=== PATIENT | female | born 1955 | race Caucasian/White ===

== ENCOUNTER 2021-03-22 14:06 | Outpatient (CLI) | payer MEDICARE, MEDICAID, SELFPAY ==
--- NOTE | 2021-03-22 14:14 | USCV_ITS ---
Candelaria Stein Age: 65 Gender: F : 1955 Exam Date: 03/22/2021 14:43 Ordering Phys: Matthew Baltazar XX Technologist: ADALGISA Exam Location: [facility] – [place] Indication: s/p CABG 2015 BP: 138 / 88 HR: 80 Rhythm: Sinus Technical Quality: Adequate MEASUREMENTS (Male / Female) Normal Values 2D ECHO LV Diastolic Diameter PLAX 2.9 cm 4.2 - 5.9 / 3.9 - 5.3 cm LV Systolic Diameter PLAX 2.0 cm IVS Diastolic Thickness 1.6 cm 0.6 - 1.0 / 0.6 - 0.9 cm IVS Systolic Thickness 2.0 cm LVPW Diastolic Thickness 1.0 cm 0.6 - 1.0 / 0.6 - 0.9 cm LVPW Systolic Thickness 1.2 cm LVOT Diameter 2.0 cm LV Ejection Fraction 2D Teich 61.5 % LV Ejection Fraction MOD 2C 62.0 % LV Ejection Fraction 2C AL 62.4 % LA Diameter 3.8 cm LA Width 3.0 cm LA Height 4.9 cm RA Width 2.5 cm RA Height 4.0 cm Aorta at Sinotubular Diameter 2.9 cm M-MODE Aortic Annulus Diameter 3.0 cm LA Ao Ratio MM 1.3 MV E Point Septal Separation 0.4 cm DOPPLER AV Peak Velocity 125.0 cm/s LVOT Peak Velocity 120.0 cm/s AV Area Cont Eq vti 3.3 cm squared AV Area Cont Eq pk 2.9 cm squared MV Peak Velocity 115.0 cm/s MV Area PHT 2.5 cm squared Mitral E to A Ratio 0.7 MV E' Velocity 44.0 cm/s Mitral E to MV E' Ratio 10.1 Mitral E to LV E' Lateral Ratio 8.3 Mitral E to LV E' Septal Ratio 12.9 TR Peak Velocity 212.0 cm/s TR Peak Gradient 18.0 mmHg TV Peak E Velocity 71.0 cm/s Right Atrial Pressure 5.0 mmHg Pulmonary Artery Systolic Pressu 23.0 mmHg PV Peak Velocity 83.0 cm/s RV Acceleration Time 0.1 s RV Ejection Time 0.3 s RV AcT/ET 0.4 FINDINGS Left Ventricle Normal left ventricular cavity size. Normal left ventricular systolic function. No regional wall motion abnormalities. Left ventricular ejection fraction is estimated at 60 %. Grade I/IV diastolic dysfunction (abnormal relaxation filling pattern), normal to mildly elevated filling pressures. Right Ventricle The right ventricle is normal in size and function. Right Atrium The right atrium is normal in size. Left Atrium The left atrium is normal in size. Mitral Valve Structurally normal mitral valve without significant stenosis or prolapse. There is no mitral regurgitation. Aortic Valve Moderate aortic valve calcification. No aortic valve stenosis. No aortic valve regurgitation. Tricuspid Valve Structurally normal tricuspid valve without significant stenosis or regurgitation. Pulmonary artery systolic pressure is normal. Pulmonic Valve Structurally normal pulmonic valve without significant stenosis. There is no pulmonic regurgitation. Pericardium Normal pericardium without effusion. Aorta Normal ascending aorta dimension. CONCLUSIONS 1-Normal left ventricular cavity size. Normal left ventricular systolic function. No regional wall motion abnormalities. Left ventricular ejection fraction is estimated at 60 %. Grade I/IV diastolic dysfunction (abnormal relaxation filling pattern), normal to mildly elevated filling pressures. 2-There is no pericardial effusion. 3-No significant valve abnormalities. 4-Pulmonary artery systolic pressure is within normal limits. 5-Right atrial pressure is around 5 mm of mercury. 6-There are no prior echocardiogram studies to compare. Heidi Tee MD (Electronically Signed) Final Date: 22 March 2021 19:31 S
== END 2021-03-22 14:07 | disposition home or self-care (01) ==
LOC: RAD 14:08
PROVIDERS: PCP Nurse Practitioner Family; Visit Provider Family Medicine
DX: I25.5 Ischemic cardiomyopathy (principal); Z95.1 Presence of aortocoronary bypass graft
CPT/HCPCS: 93306

== ENCOUNTER → 2021-09-28 13:14 | Outpatient (BNVA) | payer MEDICARE, MEDICAID, SELFPAY | PROVIDERS: PCP Nurse Practitioner Family; Referring Provider Nurse Practitioner Family; Visit Provider Internal Medicine | DX: E11.65 Type 2 diabetes mellitus with hyperglycemia (principal); E78.2 Mixed hyperlipidemia; K76.0 Fatty (change of) liver, not elsewhere classified; Z79.4 Long term (current) use of insulin | CPT/HCPCS: 99204 ==

== ENCOUNTER → 2022-03-14 10:44 | Outpatient (BNVA) | payer MEDICARE, MEDICAID, SELFPAY | PROVIDERS: PCP Nurse Practitioner Family; Visit Provider Internal Medicine | DX: E11.65 Type 2 diabetes mellitus with hyperglycemia (principal); E11.9 Type 2 diabetes mellitus without complications; K76.0 Fatty (change of) liver, not elsewhere classified; Z79.4 Long term (current) use of insulin | CPT/HCPCS: 80053; 80061; 82044; 83036; 99214 ==

== ENCOUNTER 2022-08-21 12:56 | Outpatient (CLI) | payer MEDICARE, MEDICAID, SELFPAY ==
[2022-08-21 13:35] LABS: Alanine Aminotransferase 26 U/L (0-33); Albumin Level 4.2 g/dL (3.5-5.2); Alkaline Phosphatase 49 U/L (35-105); Aspartate Amino Transferase 24 U/L (0-32); Blood Urea Nitrogen 10 mg/dL (8-23); Carbon Dioxide 22 mmol/L (22-29); Chloride 98 mmol/L (98-107); Chol HDL Ratio 5.17 mg/dL (0.0-4.40); Cholesterol 155 mg/dL (0-200); Globulin 2.8 g/dL (1.3-4.6); Glomerular Filtration Rate 100.6 mL/min (90-130); Glucose 333 mg/dL (65-115); HDL Cholesterol 30 mg/dL (60-100); LDL Cholesterol Calculated 79 mg/dL (50-129); LDL HDL Ratio 2.63 RATIO (0.00-3.22); Osmolality Calculated 286 mOsm/kg (285-295); Sodium 132 mmol/L (136-145); Total Bilirubin 0.8 mg/dL (0.15-1.2); Triglycerides 230 mg/dL (0-150)
[2022-08-21 13:36] LABS: Anion Gap 16.4 (5-19); Creatinine Urine, Random 92 mg/dL (28-217); Microalbum Creatinine Ratio Ur 11 mg/dL (0-20); Microalbumin Random Urine 1 ug/dL (0-20); Potassium 4.4 mmol/L (3.5-5.1)
[2022-08-21 13:40] LABS: Estmated Average Glucose 169; Hemoglobin A1C 7.5 % (4.0-6.0)
== END 2022-08-21 12:57 | disposition home or self-care (01) ==
LOC: LAB 13:00
PROVIDERS: PCP Family Medicine; Visit Provider Internal Medicine
DX: E11.65 Type 2 diabetes mellitus with hyperglycemia (principal); E78.2 Mixed hyperlipidemia; K76.0 Fatty (change of) liver, not elsewhere classified; Z79.4 Long term (current) use of insulin
CPT/HCPCS: 36415; 80053; 80061; 82044; 83036; 99214

== ENCOUNTER 2022-10-31 13:34 | Outpatient (CLI) | payer MEDICARE, MEDICAID, SELFPAY ==
--- NOTE | 2022-10-31 13:45 | MM_ITS ---
WS: [id number] BILATERAL 3D TOMOSYNTHESIS DIGITAL SCREENING MAMMOGRAPHY WITH CAD CLINICAL INFORMATION: SCREENING HISTORY: Screening mammogram. No current complaints. COMPARISON: 2020 TECHNIQUE: Bilateral CC and MLO views. FINDINGS: The breasts are composed of heterogeneous fibroglandular density tissue, which can limit the detectio n of small underlying mass lesions. No suspicious mass, asymmetry, calcifications, or architectural d istortion. No evidence of malignancy. Punctate and lucent centered calcifications. Vascular calcifica tion. IMPRESSION: MM/[place] [id number] BI-RADS: 2-Benign FOLLOW UP: 1 Year Follow-up Recommend return to annual screening mammography.
== END 2022-10-31 13:35 | disposition home or self-care (01) ==
LOC: RAD 13:35 → MOBLMAM 13:44
PROVIDERS: PCP Family Medicine; Visit Provider Family Medicine
DX: Z12.31 Encounter for screening mammogram for malignant neoplasm of breast (principal)
CPT/HCPCS: 77063; 77067

== ENCOUNTER 2022-11-23 08:55 | Outpatient (CLI) | payer MEDICARE, MEDICAID, SELFPAY ==
[2022-11-23 09:25] LABS: Estmated Average Glucose 183
[2022-11-23 09:32] LABS: Alanine Aminotransferase 25 U/L (0-33); Albumin Level 4.4 g/dL (3.5-5.2); Alkaline Phosphatase 51 U/L (35-105); Anion Gap 17.7 (5-19); Aspartate Amino Transferase 21 U/L (0-32); Blood Urea Nitrogen 8 mg/dL (8-23); Calcium 9.4 mg/dL (8.5-10.5); Carbon Dioxide 23 mmol/L (22-29); Chloride 99 mmol/L (98-107); Chol HDL Ratio 5.09 mg/dL (0.0-4.40); Cholesterol 163 mg/dL (0-200); Globulin 2.5 g/dL (1.3-4.6); Glucose 331 mg/dL (65-115); HDL Cholesterol 32 mg/dL (60-100); LDL Cholesterol Calculated 71 mg/dL (50-129); LDL HDL Ratio 2.22 RATIO (0.00-3.22); Osmolality Calculated 291 mOsm/kg (285-295); Potassium 4.7 mmol/L (3.5-5.1); Sodium 135 mmol/L (136-145); Total Bilirubin 0.5 mg/dL (0.15-1.2); Total Protein 6.9 g/dL (6.6-8.7); Triglycerides 299 mg/dL (0-150)
[2022-11-23 09:33] LABS: Creatinine Urine, Random 95 mg/dL (28-217); Microalbum Creatinine Ratio Ur 11 mg/dL (0-20); Microalbumin Random Urine 1 ug/dL (0-20)
== END 2022-11-23 08:56 | disposition home or self-care (01) ==
PROVIDERS: PCP Family Medicine; Visit Provider Internal Medicine
DX: E11.65 Type 2 diabetes mellitus with hyperglycemia (principal); E78.2 Mixed hyperlipidemia; K76.0 Fatty (change of) liver, not elsewhere classified; Z79.4 Long term (current) use of insulin
CPT/HCPCS: 80053; 80061; 82044; 83036; 99214

== ENCOUNTER → 2023-03-14 09:39 | Outpatient (BNVA) | payer MEDICARE, MEDICAID, SELFPAY | PROVIDERS: PCP Family Medicine; Visit Provider Internal Medicine | DX: K76.0 Fatty (change of) liver, not elsewhere classified; E11.65 Type 2 diabetes mellitus with hyperglycemia; E78.2 Mixed hyperlipidemia; Z79.4 Long term (current) use of insulin; Z79.85 Long-term (current) use of injectable non-insulin antidiabetic drugs | CPT/HCPCS: 36415; 80053; 82044; 83036; 99214 ==

== ENCOUNTER → 2023-05-03 12:59 | Outpatient (BNVA) | payer MEDICARE, MEDICAID, SELFPAY | PROVIDERS: PCP Family Medicine; Referring Provider Nurse Practitioner Family; Visit Provider Surgery | DX: R13.10 Dysphagia, unspecified (principal); Z80.0 Family history of malignant neoplasm of digestive organs; K21.9 Gastro-esophageal reflux disease without esophagitis | CPT/HCPCS: 99204 ==

== ENCOUNTER 2023-05-09 09:41 | Day surgery (SDC) | payer MEDICARE, MEDICAID, SELFPAY ==
[2023-05-09 10:26] VITALS: BP 142/90; PULSE 90; RESP 18; TEMP 36.9; O2SAT 93
[2023-05-09 10:34] LABS: Glucose Point of Care 335 mg/dL (70-110)
[2023-05-09] MEDS: sodium chloride 0.9% 1,000 ML 30 ML IV (10:39)
--- NOTE | 2023-05-09 10:53 | P.ANESASSM_ITS ---
Pre-Anesthetic Assessment Height/Weight: Height 1.6 m Weight 70.76 kg Temp Pulse Resp BP Pulse Ox O2 Del Method 98.5 F 90 18 142/90 93 Room Air 05/09/23 10:05/09/23 10:05/09/23 10:05/09/23 10:05/09/23 10:05/09/23 10: Operation Date: 05/09/23 13:00 Proposed Procedures p EGD Dilation W/ Balloon(Not Applicable) - Maninder Patterson DO s Colonoscopy(Not Applicable) - Maninder Patterson DO Was Beta Arleth taken within 24 hours: Yes Was Clonidine taken within 24 hours: N/A Last intake: Intake Last Liquid Date 05/09/23 Last Liquid Time 08:00 Last Solid Date 05/07/23 Last Solid Time 22:00 Last Intake: 08:00 Social No alcohol and No tobacco Exam alert, oriented x 3, clear to auscultation bilaterally and regular rate & rhythm Airway Submandibular: within normal limits Cervical ROM: within normal limits Mallampati: Class II Dentition: full History/ROS No significant history except as noted Pulmonary None reported CV/HEM Coronary Artery Disease and Hypertension 3 vessel CABG 2014 None reported Hepatic None reported GI Gastroesophageal Reflux Disease Metabolic Diabetes Mellitus [facility] Scoliosis Neuropsych Anxiety Anesthetic Plan ASA status: 3 Anesthesia: MAC Risk of > 500 ml blood loss (7ml/kg in children): Yes, adequate IV access and fluids planned Medications/Allergies Home Medications Medication Instructions Recorded Confirmed Last Taken Type aspirin 325 mg tablet 325 mg PO DAILY 09/06/21 05/07/23 05/05/23 History carvedilol 6.25 mg tablet (Coreg) 6.25 mg PO BID 09/06/21 05/07/23 05/08/23 History conjugated estrogens 0.625 mg/gram 0.625 mg vaginal DAILY 09/06/21 05/07/23 05/08/23 History vaginal cream (Premarin) docusate sodium 100 mg capsule 100 mg PO DAILY 09/06/21 05/07/23 05/08/23 History (Colace) icosapent ethyl 1 gram capsule 2 g PO BID 09/06/21 05/07/23 05/08/23 History (Vascepa) lisinopril 5 mg tablet 5 mg PO DAILY 09/06/21 05/07/23 05/08/23 History paroxetine HCl 40 mg tablet (Paxil) 40 mg PO DAILY 09/06/21 05/07/23 05/08/23 History potassium chloride 10 mEq 10 meq PO DAILY 09/06/21 05/07/23 05/08/23 History tablet,extended release (Klor-Con) pravastatin 40 mg tablet 40 mg PO DAILY 09/06/21 05/07/23 05/08/23 History alendronate 70 mg tablet (Fosamax) 70 mg PO .Q 7 days. 09/28/21 05/07/23 05/08/23 History blood-glucose meter,continuous #1 ea 09/28/21 05/09/23 Unknown Rx (Dexcom G6 Pickle Maker) blood-glucose sensor (Dexcom G6 #9 ea 09/28/21 05/09/23 Unknown Rx Sensor device) blood-glucose transmitter (Dexcom #3 ea 09/28/21 05/09/23 Unknown Rx G6 Transmitter device) ergocalciferol (vitamin D2) 1,250 1,250 mcg PO .Q 7 days 09/28/21 05/07/23 05/08/23 History mcg (50,000 unit) capsule insulin regular hum U-500 conc 500 500 unit SUBCUT QAM 09/28/21 05/07/23 05/08/23 History unit/mL(3 mL) subcut pen semaglutide 2 mg/dose (8 mg/3 mL) 2 mg (0.75 mL) SUBCUT Q7D 90 days 04/23/23 05/07/23 04/25/23 Rx subcutaneous pen injector (Ozempic) #9 mL pantoprazole 40 mg tablet,delayed 40 mg PO BID 6 weeks #84 tabs 05/03/23 05/07/23 05/08/23 Rx release (Protonix) fenofibrate micronized 67 mg 67 mg PO DAILY 05/07/23 05/07/23 05/08/23 History capsule semaglutide 2 mg/dose (8 mg/3 mL) 2 mg SUBCUT DIRECTED 05/07/23 05/07/23 04/25/23 History subcutaneous pen injector (Ozempic) Allergies Allergy/AdvReac Type Severity Reaction Status Date / Time erythromycin base Allergy Intermediate ALGY-Hives Verified 05/03/23 13:13 Tetracyclines Allergy Unknown Verified 05/03/23 13:13 Current Medications Generic Name Dose Route Start Last Admin Trade Name Melonie PRN Reason Stop Dose Admin Sodium Chloride 1,000 mls @ 30 mls/hr 05/09/23 10:15 05/09/23 10:39 Sodium Chloride 0.9% IV 05/10/23 10:14 30 mls/hr .Q24H HOMER Administration PFSH Anesthesia Medical History (Updated 05/03/23 @ 14:30 by Maninder Patterson DO) Family history of colon cancer Scoliosis Coronary bypass graft mechanical complication Prophylactic ovary removal Abnormal colonoscopy Normal endoscopy Hypertension Hypertriglyceridemia Osteoporosis CAD S/P percutaneous coronary angioplasty Esophageal stricture Diabetes mellitus with hyperglycemia Mitral valve disorder Fatty liver Vitamin D deficiency Surgical History (Updated 05/03/23 @ 14:30 by Maninder Patterson DO) History of esophagogastroduodenoscopy (EGD) [facility] [place] History of appendectomy Previous section History of colonoscopy with polypectomy Hx of hysterectomy Family History Father Glaucoma Cancer Mother Cancer Hypertension Heart attack Social History Smoking and tobacco/nicotine status: never used tobacco/nicotine Second hand smoke exposure: No Alcohol intake: never Substance/Drug Use: never Adopted: No Caregiver/support person: No Lives independently: Yes Household members: spouse Housing: Manufactured/Mobile home Marital status: Number of children: 4 Highest education level completed: High School Graduate service: No Current occupational status: retired Data Anesthesia Cardiac Studies: Echocardiogram 03/22/21
[2023-05-09] MEDS: insulin regular-human 10 UNIT in SYRINGE 1 EACH IVP (10:56)
[2023-05-09 11:22] LABS: Glucose Point of Care 296 mg/dL (70-110)
--- NOTE | 2023-05-09 13:42 | W.PM.OPSUD ---
Surgery/Procedure H&P Update DATE OF PROCEDURE: May 09, 2023 DATE H&P PERFORMED: 05/03/23 H&P UPDATE INFORMATION: I have reviewed H&P completed within last 30 days, I have examined patient prior to procedure and No changes to prior documentation PLANNED PROCEDURE: Operation Date: 05/09/23 13:00 Proposed Procedures p EGD Dilation W/ Balloon(Not Applicable) - DO indy Hurd Colonoscopy(Not Applicable) - Maninder Patterson DO
--- NOTE | 2023-05-09 14:05 | ANE.PACU2 ---
Inpatient post-anesthesia follow up: Airway intact: Yes Vital signs: Temperature 97.5 F Pulse Rate 84 Respiratory Rate 18 Blood Pressure 172/97 Pulse Oximetry 94 Oxygen Delivery Me thod Room Air Oxygen Flow Rate Fraction of Inspir ed Oxygen Hydration adequate: Yes Nausea and vomiting: No Pain level: 1 Mental status: Baseline
[2023-05-09 14:15] VITALS: BP 154/89; PULSE 90; RESP 18; TEMP 36.4; O2SAT 93
[2023-05-09 14:20] VITALS: BP 158/102; PULSE 87; RESP 18; O2SAT 93
[2023-05-09 14:30] VITALS: BP 172/97; PULSE 84; RESP 18; O2SAT 94
== END 2023-05-09 14:58 | disposition home or self-care (01) ==
PROVIDERS: PCP Family Medicine; Visit Provider Surgery
PROC: 0DJD8ZZ Inspection of Lower Intestinal Tract, Via Natural or Artificial Opening Endoscopic (ICD-10-PCS; CPT 45378; 2023-05-09 13:00)
DX: Z12.11 Encounter for screening for malignant neoplasm of colon (principal); Z80.0 Family history of malignant neoplasm of digestive organs; Z86.010 Personal history of colon polyps; R13.10 Dysphagia, unspecified; Z79.82 Long term (current) use of aspirin; I10 Essential (primary) hypertension; I25.10 Atherosclerotic heart disease of native coronary artery without angina pectoris; E11.65 Type 2 diabetes mellitus with hyperglycemia; K29.50 Unspecified chronic gastritis without bleeding; K57.30 Diverticulosis of large intestine without perforation or abscess without bleeding; K22.2 Esophageal obstruction; Z95.1 Presence of aortocoronary bypass graft; K21.9 Gastro-esophageal reflux disease without esophagitis; M81.0 Age-related osteoporosis without current pathological fracture
CPT/HCPCS: 36416; 43239; 43249; 82962; 88305; 88342; 96374; G0121; J1815; J2704; J7030

== ENCOUNTER → 2023-06-05 09:50 | Outpatient (BNVA) | payer MEDICARE, MEDICAID, SELFPAY | PROVIDERS: PCP Family Medicine; Visit Provider Internal Medicine | DX: E11.65 Type 2 diabetes mellitus with hyperglycemia (principal); E78.2 Mixed hyperlipidemia | CPT/HCPCS: 80053; 80061; 82043; 83036 ==

== ENCOUNTER → 2023-06-11 11:16 | Outpatient (BNVA) | payer MEDICARE, MEDICAID, SELFPAY | PROVIDERS: PCP Family Medicine; Visit Provider Internal Medicine | DX: E11.65 Type 2 diabetes mellitus with hyperglycemia; E78.2 Mixed hyperlipidemia; K76.0 Fatty (change of) liver, not elsewhere classified; Z79.4 Long term (current) use of insulin; Z79.85 Long-term (current) use of injectable non-insulin antidiabetic drugs | CPT/HCPCS: 99214 ==

== ENCOUNTER 2023-07-04 06:42 | Day surgery (SDC) | payer MEDICARE, MEDICAID, SELFPAY ==
[2023-07-04 06:58] VITALS: BP 156/89; PULSE 70; RESP 18; TEMP 36.5; O2SAT 94; BMI 26.5
[2023-07-04] MEDS: sodium chloride 0.9% 1,000 ML 30 ML IV (07:03)
[2023-07-04 07:13] LABS: Glucose Point of Care 239 mg/dL (70-110)
--- NOTE | 2023-07-04 08:08 | ANES.PREANE2 ---
Pre-Anesthetic Assessment Height/Weight: Height 1.6 m Weight 68.039 kg Temp Pulse Resp BP Pulse Ox O2 Del Method 97.7 F 70 18 156/89 94 Room Air 07/04/23 06:58 07/04/23 06:58 07/04/23 06:58 07/04/23 06:58 07/04/23 06:58 07/04/23 06:58 Preop Diagnosis: strictures Operation Date: 07/04/23 08:15 [place] [id number] EGD w/ Balloon Dial K21.9,R13.10(Not Applicable) - Maninder Patterson DO Familial anesthetic complications: none Was Beta Arleth taken within 24 hours: Yes Was Clonidine taken within 24 hours: N/A Last intake: Intake Last Liquid Date 07/03/23 Last Liquid Time 23:30 Last Solid Date 07/03/23 Last Solid Time 22:30 Last Intake: 23:30 Social No alcohol and No tobacco Exam alert, oriented x 3, clear to auscultation bilaterally and regular rate & rhythm Airway Submandibular: within normal limits Cervical ROM: within normal limits Mallampati: Class II Dentition: false (upper and lower) CV/HEM Coronary Artery Disease (CABG 2014. NO problems since) and Hypertension None reported Hepatic None reported GI Gastroesophageal Reflux Disease Metabolic Diabetes Mellitus Musc/skel Lower Back Pain and Scoliosis Neuropsych Anxiety and Depression Anesthetic Plan ASA status: 3 Anesthesia: MAC Risk of > 500 ml blood loss (7ml/kg in children): No Medications/Allergies Home Medications Medication Instructions Recorded Confirmed Last Taken Type aspirin 325 mg tablet 325 mg PO DAILY 09/06/21 07/04/23 06/29/23 History carvedilol 6.25 mg tablet (Coreg) 6.25 mg PO BID 09/06/21 07/04/23 07/03/23 History conjugated estrogens 0.625 mg/gram 0.625 mg vaginal DAILY 09/06/21 06/11/23 06/25/23 History vaginal cream (Premarin) icosapent ethyl 1 gram capsule 2 g PO BID 09/06/21 07/02/23 07/01/23 History (Vascepa) lisinopril 5 mg tablet 10 mg PO BID 09/06/21 07/04/23 07/03/23 History paroxetine HCl 40 mg tablet (Paxil) 40 mg PO DAILY 09/06/21 07/04/2307/02/24 History potassium chloride 10 mEq 10 meq PO DAILY 09/06/21 07/04/23 07/03/23 History tablet,extended release (Klor-Con) alendronate 70 mg tablet (Fosamax) 70 mg PO .Q 7 days. 09/28/21 06/11/23 07/02/23 History blood-glucose meter,continuous #1 ea 09/28/21 06/11/23 Unknown Rx (Dexcom G6 Direct Marketing Specialist) blood-glucose sensor (Dexcom G6 #9 ea 09/28/21 06/11/23 Unknown Rx Sensor device) blood-glucose transmitter (Dexcom #3 ea 09/28/21 06/11/23 Unknown Rx G6 Transmitter device) ergocalciferol (vitamin D2) 1,250 1,250 mcg PO .Q 7 days 09/28/21 06/11/23 07/01/23 History mcg (50,000 unit) capsule insulin regular hum U-500 conc 500 500 unit SUBCUT QAM 09/28/21 07/04/23 07/03/23 History unit/mL(3 mL) subcut pen pantoprazole 40 mg tablet,delayed 40 mg PO BID 6 weeks #84 tabs 05/03/23 07/04/23 07/03/23 Rx release (Protonix) fenofibrate micronized 67 mg 67 mg PO DAILY 05/07/23 07/04/23 07/03/23 History capsule semaglutide 2 mg/dose (8 mg/3 mL) 2 mg (0.75 mL) SUBCUT Q7D 90 days 05/25/23 07/02/23 06/20/23 Rx subcutaneous pen injector (Ozempic) #9 mL atorvastatin 40 mg tablet 40 mg PO DAILY #90 tabs 06/11/23 07/04/23 07/03/23 Rx Allergies Allergy/AdvReac Type Severity Reaction Status Date / Time erythromycin base Allergy Intermediate ALGY-Hives Verified 06/11/23 09:09 Tetracyclines AdvReac yeast Verified 06/11/23 09:09 Current Medications Generic Name Dose Route Start Last Admin Trade Name Freq PRN Reason Stop Dose Admin Sodium Chloride 1,000 mls @ 30 mls/hr 07/04/23 07:00 07/04/23 07:03 Sodium Chloride 0.9% IV 07/05/23 06:59 30 mls/hr .Q24H HOMER Administration PFSH Anesthesia Medical History Family history of colon cancer Scoliosis Coronary bypass graft mechanical complication Prophylactic ovary removal Abnormal colonoscopy Normal endoscopy Hypertension Hypertriglyceridemia Osteoporosis CAD S/P percutaneous coronary angioplasty Esophageal stricture Diabetes mellitus with hyperglycemia Mitral valve disorder Fatty liver Vitamin D deficiency Surgical History History of esophagogastroduodenoscopy (EGD) [facility] in [place] History of appendectomy Previous section History of colonoscopy with polypectomy Hx of hysterectomy Family History Father Glaucoma Cancer Mother Cancer Hypertension Heart attack Social History Smoking and tobacco/nicotine status: never used tobacco/nicotine Second hand smoke exposure: No Alcohol intake: never Substance/Drug Use: never Adopted: No Caregiver/support person: No Lives independently: Yes Household members: spouse Housing: Manufactured/Mobile home Marital status: Number of children: 4 Highest education level completed: High School Graduate service: No Current occupational status: retired Data Anesthesia Cardiac Studies: Echocardiogram 03/22/21
--- NOTE | 2023-07-04 08:24 | P.HP_ITS ---
Providers/Chief Complaint Primary Care Provider: Matthew Baltazar Chief Complaint: K21.9, R13.10 History of Present Illness Candelaria Stein is a 67 year old female Review of Systems General: Reports: 10 or more systems reviewed and unremarkable except in HPI and below Medications/Allergies Home Medications Medication Instructions Recorded Confirmed Last Taken Type aspirin 325 mg tablet 325 mg PO DAILY 09/06/21 07/04/23 06/29/23 History carvedilol 6.25 mg tablet (Coreg) 6.25 mg PO BID 09/06/21 07/04/23 07/03/23 History conjugated estrogens 0.625 mg/gram 0.625 mg vaginal DAILY 09/06/21 06/11/23 06/25/23 History vaginal cream (Premarin) icosapent ethyl 1 gram capsule 2 g PO BID 09/06/21 07/02/23 07/01/23 History (Vascepa) lisinopril 5 mg tablet 10 mg PO BID 09/06/21 07/04/23 07/03/23 History paroxetine HCl 40 mg tablet (Paxil) 40 mg PO DAILY 09/06/21 07/04/23 07/03/23 History potassium chloride 10 mEq 10 meq PO DAILY 09/06/21 07/04/23 07/03/23 History tablet,extended release (Klor-Con) alendronate 70 mg tablet (Fosamax) 70 mg PO .Q 7 days. 09/28/21 06/11/23 07/02/23 History blood-glucose meter,continuous #1 ea 09/28/21 06/11/23 Unknown Rx (Dexcom G6 Radial Router Operator) blood-glucose sensor (Dexcom G6 #9 ea 09/28/21 06/11/23 Unknown Rx Sensor device) blood-glucose transmitter (Dexcom #3 ea 09/28/21 06/11/23 Unknown Rx G6 Transmitter device) ergocalciferol (vitamin D2) 1,250 1,250 mcg PO .Q 7 days 09/28/21 06/11/23 07/01/23 History mcg (50,000 unit) capsule insulin regular hum U-500 conc 500 500 unit SUBCUT QAM 09/28/21 07/04/23 07/03/23 History unit/mL(3 mL) subcut pen pantoprazole 40 mg tablet,delayed 40 mg PO BID 6 weeks #84 tabs 05/03/23 07/04/23 07/03/23 Rx release (Protonix) fenofibrate micronized 67 mg 67 mg PO DAILY 05/07/23 07/04/23 07/03/23 History capsule semaglutide 2 mg/dose (8 mg/3 mL) 2 mg (0.75 mL) SUBCUT Q7D 90 days 05/25/23 07/02/23 06/20/23 Rx subcutaneous pen injector (Ozempic) #9 mL atorvastatin 40 mg tablet 40 mg PO DAILY #90 tabs 06/11/23 07/04/23 07/03/23 Rx Allergies Allergy/AdvReac Type Severity Reaction Status Date / Time erythromycin base Allergy Intermediate ALGY-Hives Verified 06/11/23 09:09 Tetracyclines AdvReac yeast Verified 06/11/23 09:09 PFSH Acute PFSH: Medical History (Updated 07/04/23 @ 08:24 by Maninder Patterson DO) Family history of colon cancer Scoliosis Coronary bypass graft mechanical complication Prophylactic ovary removal Abnormal colonoscopy Normal endoscopy Hypertension Hypertriglyceridemia Osteoporosis CAD S/P percutaneous coronary angioplasty Esophageal stricture Diabetes mellitus with hyperglycemia Mitral valve disorder Fatty liver Vitamin D deficiency Surgical History History of esophagogastroduodenoscopy (EGD) [facility] [place] History of appendectomy Previous section History of colonoscopy with polypectomy Hx of hysterectomy Family History Father Glaucoma Cancer Mother Cancer Hypertension Heart attack Social History Smoking and tobacco/nicotine status: never used tobacco/nicotine Second hand smoke exposure: No Alcohol intake: never Substance/Drug Use: never Adopted: No Caregiver/support person: No Lives independently: Yes Household members: spouse Housing: Manufactured/Mobile home Marital status: Number of children: 4 Highest education level completed: High School Graduate service: No Current occupational status: retired Vitals/I&O/Wt Last Vital Signs Temp 97.7 F 07/04/23 06:58 Pulse 70 07/04/23 06:58 Resp 18 07/04/23 06:58 BP 156/89 07/04/23 06:58 Pulse Ox 94 07/04/23 06:58 O2 Del Method Room Air 04/17/24 06:58 Weight last 48 hrs Weight 150 lb A&P Assessment and plan (1) Esophageal stricture: Plan EGD with possible balloon dilation Attestations Medical Necessity Statement*: Home Coding Level of Care Code Acute Code for Chg Fwd Diagnoses Esophageal stricture K22.2
[2023-07-04 08:46] VITALS: BP 90/58; PULSE 86; RESP 16; O2SAT 96
[2023-07-04 09:02] VITALS: BP 137/57; PULSE 82; RESP 16; O2SAT 94
--- NOTE | 2023-07-04 14:04 | ANE.PACU2 ---
Inpatient post-anesthesia follow up: Vital signs: Temperature 97.7 F Pulse Rate 82 Respiratory Rate 16 Blood Pressure 137/57 Pulse Oximetry 94 Oxygen Delivery Me thod Room Air Oxygen Flow Rate 4 Fraction of Inspir ed Oxygen Hydration adequate: Yes Nausea and vomiting: No Mental status: Baseline Additional Comments: no apparent anesthetic complications noted
== END 2023-07-04 09:20 | disposition home or self-care (01) ==
PROVIDERS: PCP Family Medicine; Visit Provider Surgery
DX: R13.10 Dysphagia, unspecified (principal); K21.9 Gastro-esophageal reflux disease without esophagitis; Z79.82 Long term (current) use of aspirin; I25.10 Atherosclerotic heart disease of native coronary artery without angina pectoris; E11.42 Type 2 diabetes mellitus with diabetic polyneuropathy; K22.2 Esophageal obstruction; K22.10 Ulcer of esophagus without bleeding; Z95.1 Presence of aortocoronary bypass graft; I10 Essential (primary) hypertension; E11.9 Type 2 diabetes mellitus without complications
CPT/HCPCS: 36416; 43239; 43249; 82962; 88305; 88342; J2704; J7030

== ENCOUNTER → 2023-07-23 10:44 | Outpatient (BNVA) | payer MEDICARE, MEDICAID, SELFPAY | PROVIDERS: PCP Family Medicine; Visit Provider Surgery | DX: Z09 Encounter for follow-up examination after completed treatment for conditions other than malignant neoplasm (principal); K22.2 Esophageal obstruction | CPT/HCPCS: 99214 ==

== ENCOUNTER 2023-09-19 11:40 | Outpatient (CLI) | payer MEDICARE, MEDICAID, SELFPAY ==
[2023-09-19 12:35] LABS: Albumin Level 4.4 g/dL (3.5-5.2); Alkaline Phosphatase 59 U/L (35-105); Anion Gap 15.5 (5-19); Aspartate Amino Transferase 15 U/L (0-32); Blood Urea Nitrogen 7 mg/dL (8-23); Carbon Dioxide 23 mmol/L (22-29); Chloride 100 mmol/L (98-107); Chol HDL Ratio 4.24 mg/dL (0.0-4.40); Cholesterol 161 mg/dL (0-200); Globulin 2.9 g/dL (1.3-4.6); Glucose 298 mg/dL (65-115); HDL Cholesterol 38 mg/dL (60-100); LDL Cholesterol Calculated 86 mg/dL (50-129); LDL HDL Ratio 2.26 RATIO (0.00-3.22); Osmolality Calculated 287 mOsm/kg (285-295); Potassium 4.5 mmol/L (3.5-5.1); Sodium 134 mmol/L (136-145); Total Bilirubin 0.7 mg/dL (0.15-1.2); Total Protein 7.3 g/dL (6.6-8.7); Triglycerides 186 mg/dL (0-150)
[2023-09-19 12:40] LABS: Creatinine Urine, Random 76 mg/dL (28-217); Microalbum Creatinine Ratio Ur 13 mg/dL (0-20); Microalbumin Random Urine 1 ug/dL (0-20)
[2023-09-19 12:51] LABS: Estmated Average Glucose 200; Hemoglobin A1C 8.6 % (4.0-6.0)
[2023-09-19 13:07] LABS: Alanine Aminotransferase 16 U/L (0-33)
== END 2023-09-19 11:41 | disposition home or self-care (01) ==
PROVIDERS: PCP Family Medicine; Visit Provider Internal Medicine
DX: E11.65 Type 2 diabetes mellitus with hyperglycemia (principal); E11.9 Type 2 diabetes mellitus without complications; E78.2 Mixed hyperlipidemia
CPT/HCPCS: 36415; 80053; 80061; 82044; 83036

== ENCOUNTER 2023-11-28 14:17 | Outpatient (CLI) | payer MEDICARE, MEDICAID, SELFPAY ==
--- NOTE | 2023-11-28 14:20 | MM_ITS ---
WS: [id number] BILATERAL 3D TOMOSYNTHESIS DIGITAL SCREENING MAMMOGRAPHY WITH CAD CLINICAL INFORMATION: SCREENING HISTORY: Screening mammogram. No current complaints. COMPARISON: 2022 TECHNIQUE: Bilateral CC and MLO views. FINDINGS: The breasts are composed of heterogeneous fibroglandular density tissue, which can limit the detectio n of small underlying mass lesions. No suspicious mass, asymmetry, calcifications, or architectural d istortion. No evidence of malignancy. Vascular calcifications. Incidental punctate and lucent centere d calcifications. MM/[place] [id number] IMPRESSION: DENSITY:The breasts are heterogeneously dense, which may obscure small masses. BI-RADS: 2 - Benign FOLLOW UP: 1 Year Follow-up Recommend return to annual screening mammography.
== END 2023-11-28 14:18 | disposition home or self-care (01) ==
LOC: MOBLMAM 14:20
PROVIDERS: PCP Family Medicine; Visit Provider Family Medicine
DX: Z12.31 Encounter for screening mammogram for malignant neoplasm of breast (principal)
CPT/HCPCS: 77063; 77067

== ENCOUNTER → 2024-02-15 10:18 | Outpatient (BNVA) | payer MEDICARE, MEDICAID, SELFPAY | PROVIDERS: PCP Family Medicine; Visit Provider Internal Medicine | DX: E11.65 Type 2 diabetes mellitus with hyperglycemia; E78.2 Mixed hyperlipidemia; K76.0 Fatty (change of) liver, not elsewhere classified; K59.00 Constipation, unspecified; Z79.4 Long term (current) use of insulin; Z79.85 Long-term (current) use of injectable non-insulin antidiabetic drugs | CPT/HCPCS: 99214 ==

== ENCOUNTER → 2024-05-09 09:59 | Outpatient (BNVA) | payer MEDICARE, MEDICAID, SELFPAY | PROVIDERS: PCP Family Medicine; Visit Provider Internal Medicine | DX: E11.65 Type 2 diabetes mellitus with hyperglycemia (principal); E78.2 Mixed hyperlipidemia | CPT/HCPCS: 80053; 80061; 82043; 83036 ==

== ENCOUNTER → 2024-05-15 09:57 | Outpatient (BNVA) | payer MEDICARE, MEDICAID, SELFPAY | PROVIDERS: PCP Family Medicine; Visit Provider Internal Medicine | DX: E11.65 Type 2 diabetes mellitus with hyperglycemia (principal); K76.0 Fatty (change of) liver, not elsewhere classified; E78.2 Mixed hyperlipidemia; K59.00 Constipation, unspecified | CPT/HCPCS: 99214 ==

== ENCOUNTER → 2024-08-13 09:34 | Outpatient (BNVA) | payer MEDICARE, MEDICAID, SELFPAY | PROVIDERS: PCP Family Medicine; Visit Provider Internal Medicine | DX: E11.65 Type 2 diabetes mellitus with hyperglycemia (principal); E78.1 Pure hyperglyceridemia | CPT/HCPCS: 80053; 80061; 83036 ==

== ENCOUNTER → 2024-08-14 09:41 | Outpatient (BNVA) | payer MEDICARE, MEDICAID, SELFPAY | PROVIDERS: PCP Family Medicine; Visit Provider Internal Medicine | DX: E11.9 Type 2 diabetes mellitus without complications (principal); E78.2 Mixed hyperlipidemia; E11.65 Type 2 diabetes mellitus with hyperglycemia | CPT/HCPCS: 99214 ==

== ENCOUNTER 2024-11-07 09:26 | Outpatient (CLI) | payer OTHER, MEDICAID, SELFPAY ==
[2024-11-07 09:54] VITALS: BMI 23.9
--- NOTE | 2024-11-07 09:57 | ECG_ITS ---
[employer] [place] Test Date: 2024-11-07 Pat Name: Candelaria Stein Department: Room: Gender: Female Metallurgical Specialist: : 1955 Requested By: Matthew Baltazar Order Number: [id number] Worrell MD: Dong Angeles M.D. Interpretive Statements procedure: A total of 0.4 mg of Lexiscan was infused over 20 seconds. The stress phase was continued for a total of 5 minutes. Sestamibi was injected 20 seconds after the Lexiscan infusion. Vital signs and ECG findings: At baseline, blood pressure 156/96 heart rate 69 bpm. After Lexiscan injection, blood pressure 192/112, heart rate 98 bpm. In recovery, blood pressure 1178/94 with heart rate of 79 bpm. At rest, EKG showed normal sinus rhythm and possible old septal and lateral infarctions. There were no ST or T wave changes during stress or recovery. Conclusion: 1. Normal EKG response to Lexiscan infusion 2. No Lexiscan induced chest pain or cardiac arrhythmia. 3. Normal blood pressure and heart rate response. 4. Nuclear myocardial perfusion scan pending; see separate report. Electronically Signed On 11-13-2024 09:30:14 CDT by Dong Angeles M.D. [email or web address]
--- NOTE | 2024-11-07 09:57 | NMCV_ITS ---
NM milli perf SPECT r/s* [id number] Candelaria Stein Age: 69 Gender: F : 1955 Exam Date: 11/07/2024 10:33 Ordering Phys: Matthew Baltazar Technologist: GILA Valerio Exam Location: [facility] Indications: cp STRESS TEST Please see separate stress test report in [facility] for full findings IMAGE PROTOCOL Rest/Stress 1 Lexiscan Day Radiopharmaceutical Dose (mCi) Administration Site Administered by Rest: Tc-99m 10.8 IV Meche Sy, BRICKLAYER SEWER Sestamibi Stress:Tc-99m 32.4 IV Meche Collinsgle, BRICKLAYER SEWER Sestamibi Rest: 07-Nov-2024 60 Discovery 630 Stress: 07-Nov-2024 30 Discovery 630 0.4mg Lexiscan. Images obtained in supine and prone position. SPECT RESULTS Technical Quality: Good Raw Data Analysis: Normal Image Corrections: No attenuation or motion correction applied Summed Stress Score: 4 Summed Rest Score: 0 Summed Difference Score: 4 PERFUSION FINDINGS Medium sized area of moderate reversibility noted in basal to distal anterior and distal anterolateral wall suggestive of possible ischemia in LAD territory. FUNCTIONAL RESULTS (calculated via Gated SPECT) Stress Image LV EF (%): 83 Stress EDV (mL):48 TID: 1.04 Stress ESV (mL):8 FUNCTIONAL FINDINGS: There is normal left ventricular systolic function. IMPRESSIONS Medium sized area of moderate reversibility noted in basal to distal anterior and distal anterolateral wall suggestive of possible ischemia and lesion in LAD territory. Heidi Tee MD (Electronically Signed) Final Date: 14 November 2024 16:25 S
[2024-11-07 10:04] LABS: Alanine Aminotransferase 11 U/L (0-33); Albumin Level 4.0 g/dL (3.5-5.2); Alkaline Phosphatase 65 U/L (35-105); Anion Gap 14.4 (5-19); Aspartate Amino Transferase 12 U/L (0-32); Blood Urea Nitrogen 7 mg/dL (8-23); Calcium 9.1 mg/dL (8.5-10.5); Carbon Dioxide 27 mmol/L (22-29); Chloride 102 mmol/L (98-107); Cholesterol 223 mg/dL (0-200); Creatinine Clr Calc Pharmacy 60.2553; Globulin 2.4 g/dL (1.3-4.6); Glucose 212 mg/dL (65-115); HDL Cholesterol 36 mg/dL (60-100); Osmolality Calculated 292 mOsm/kg (285-295); Potassium 4.4 mmol/L (3.5-5.1); Sodium 139 mmol/L (136-145); Total Protein 6.4 g/dL (6.6-8.7); Triglycerides 300 mg/dL (0-150)
[2024-11-07 10:07] LABS: Estmated Average Glucose 171; Hemoglobin A1C 7.6 % (4.0-6.0)
[2024-11-07] MEDS: aminophylline 25 mg/mL SDV 20 mL IVP (11:10)
[2024-11-07 11:18] VITALS: BP 178/94; PULSE 79
[2024-11-07 12:51] LABS: Creatinine Urine, Random 21 mg/dL (28-217)
[2024-11-07 12:52] LABS: Microalbum Creatinine Ratio Ur 48 mg/dL (0-20)
== END 2024-11-07 09:27 | disposition home or self-care (01) ==
LOC: CDL 09:27
PROVIDERS: Absent Provider Internal Medicine; PCP Family Medicine; Visit Provider Family Medicine
DX: I25.10 Atherosclerotic heart disease of native coronary artery without angina pectoris (principal); I25.5 Ischemic cardiomyopathy; E11.65 Type 2 diabetes mellitus with hyperglycemia; K59.00 Constipation, unspecified; E78.2 Mixed hyperlipidemia; K76.0 Fatty (change of) liver, not elsewhere classified; Z95.1 Presence of aortocoronary bypass graft
CPT/HCPCS: 36415; 78452; 80053; 80061; 82044; 83036; 93017; 96374; A9500; J0280; J2785

== ENCOUNTER → 2024-11-14 09:57 | Outpatient (BNVA) | payer OTHER, MEDICAID, SELFPAY | PROVIDERS: PCP Family Medicine; Visit Provider Internal Medicine | DX: E11.65 Type 2 diabetes mellitus with hyperglycemia (principal); E78.2 Mixed hyperlipidemia | CPT/HCPCS: 99214 ==

== ENCOUNTER → 2024-11-26 15:31 | Outpatient (BNVA) | payer OTHER, MEDICAID, SELFPAY | PROVIDERS: PCP Family Medicine; Visit Provider Internal Medicine Cardiovascular Disease | DX: R58 Hemorrhage, not elsewhere classified (principal); R94.39 Abnormal result of other cardiovascular function study | CPT/HCPCS: 36415; 80048; 85025; 85610 ==

== ENCOUNTER 2024-12-31 06:30 | Outpatient (CLI) | payer OTHER, MEDICAID, SELFPAY ==
[2024-12-31 07:07] LABS: Hematocrit 43.3 % (36-47); Hemoglobin 14.90 g/dL (11.27-16.99); Mean Corpuscular HGB Conc 34.4 g/dL (30-55); Mean Corpuscular Hemoglobin 29.6 pg (27-33); Mean Corpuscular Volume 86.1 fl (85-98); Nucleated Red Blood Cells % 0 %; Platelet Count 266 10^3/cmm (157-399); Red Blood Count 5.03 10^6/uL (3.85-5.65); White Blood Count 7.87 10^3/uL (3.29-11.43)
[2024-12-31 07:23] VITALS: BP 168/100; PULSE 65; RESP 16; TEMP 36.7; O2SAT 97; BMI 24.0
[2024-12-31 07:23] LABS: Anion Gap 15.0 (5-19); Blood Urea Nitrogen 6 mg/dL (8-23); Calcium 9.5 mg/dL (8.5-10.5); Carbon Dioxide 26 mmol/L (22-29); Chloride 101 mmol/L (98-107); Glucose 144 mg/dL (65-115); Osmolality Calculated 286 mOsm/kg (285-295); Potassium 4.0 mmol/L (3.5-5.1); Sodium 138 mmol/L (136-145)
--- NOTE | 2024-12-31 08:30 | XACV_ITS ---
Exam Room: 2 Ht: 163 cm Wt: 64 kg BSA: 1.70 m2 Gender: Female : 1955 Any Known Allergies: Other Exam Priority: Routine Procedure(s): Procedure Description: Diagnostic procedure Procedure Description: PCI procedure Procedure Description: Left Heart Catheterization Procedure Description: Drug Eluting Coronary Stent Procedure Description: PTCA Procedure Description: Miscellaneous Procedure Description: ACT Procedure Description: Coronary Angiography Randal ARANDA; Diagnostic Cath Status: Elective PCI Status: Elective PCI Indication: Other Conclusions 1. 69-year-old female past medical history significant for extensive history of coronary artery disease status post coronary artery bypass surgery in 2015 with CEDILLO to LAD, SVG to circumflex and SVG to RCA, diabetes mellitus hypertension hyperlipidemia kyphoscoliosis esophageal stricture for worsening of shortness of breath chest pain underwent stress test which turned out to be abnormal. It is the reason patient underwent left heart cath today. She was noted to have occluded both saphenous venous graft to OM and RCA. Anatomy was LAD was completely occluded 100% known to be, left circumflex has severe 95% mid stenosis, RCA has proximal mid and distal highly calcified significant stenosis. Patient was loaded with 600 mg of Plavix, we proceeded with PCI of mid circumflex it was treated with single drug-eluting stent postdilated with noncompliant balloon. Excellent angiographic result with ROSELINE-3 flow was achieved. RCA was highly calcified vessel that proximal and mid and distal segment. GuideLiner and JR4 guide was used, we were able to cross the lesion and balloon dilated proximal mid and distal segments however we were not able to cross with the stent beyond the mid segment therefore we decided to performed lithotripsy using (IVL) catheter 2.5 and 3.0 millimeter subsequently were used in the proximal and mid segment of the RCA with difficulty to cross the lesions, after the last round of lithotripsy with 3.0 catheter patient became bradycardic with intermittent Mobitz type II to complete heart block, atropine and epinephrine was given, patient was started on dopamine, code was called, cutaneous pacing was started, temporary pacemaker was placed. Patient then had episode of supraventricular tachycardia. In the meantime she was treated with 2 overlapping drug-eluting stents to mid and proximal segment delivered with the help of GuideLiner, patient went back to bradycardia and complete heart block after delivering of the stents., Injection of the contrast noted possible occlusion of the blood vessel with possibility of distal dissection or thrombus, balloon angioplasty was performed which opened up the blood vessels and restore the flow. Patient remains hypotensive, we prepare the groin for Impella since patient was already on dopamine Levophed and vasopressin. While trying to place Impella patient went into PEA arrest. More than 20 minutes of continuous CPR was performed in the third round, despite of that patient unfortunately did not achieve ROSC, at this point after discussion and with consent of CPR team we called off the code. Patient was pronounced at :1247. 2. Temporary pacemaker: Indication: Bradycardia with shock/Mobitz type II and intermittent complete heart block/PEA arrestThrough right common femoral vein immediate access was obtained, pacemaker was also noted to the right ventricle, sensitivity and output was increased to 5, pacing was started at 100 bpm, capture was good. 3. Indication for left heart cath: Worsening of angina despite of optimization medicine, abnormal stress test, worsening of shortness of breath suggestive of angina equivalent. Diagnostic RX Recommendation: PCI w/o planned CABG Pressures Phase:Rest AO : 188 / 78 ( 124 ) @ 11:21:00 AM 180 / 107 ( 141 ) @ 11:22:00 AM 165 / 69 ( 110 ) @ 11:25:00 AM 139 / 72 ( 104 ) @ 11:40:00 AM 93 / 52 ( 71 ) @ 11:52:00 AM 138 / 71 ( 103 ) @ 11:53:00 AM 167 / 74 ( 115 ) @ 11:57:00 AM 163 / 67 ( 108 ) @ 11:58:00 AM 155 / 67 ( 106 ) @ 11:59:00 AM 155 / 68 ( 106 ) @ 11:59:00 AM 89 / 59 ( 74 ) @ 12:06:00 PM 104 / 55 ( 77 ) @ 12:17:00 PM 64 / 41 ( 51 ) @ 12:48:00 PM 226 / 192 ( 203 ) @ 12:52:00 PM 131 / 115 ( 123 ) @ 12:59:00 PM 125 / 104 ( 116 ) @ 1:01:00 PM 34 / 24 ( 28 ) @ 1:04:00 PM 57 / 41 ( 49 ) @ 1:15:00 PM 36 / 34 ( 33 ) @ 1:15:00 PM 34 / 34 ( 34 ) @ 1:16:00 PM 27 / 20 ( 23 ) @ 1:17:00 PM 101 / 31 ( 54 ) @ 1:18:00 PM 79 / 14 ( 37 ) @ 1:19:00 PM 44 / 26 ( 33 ) @ 1:20:00 PM 30 / 23 ( 25 ) @ 1:23:00 PM 9 / -16 ( -8 ) @ 1:30:00 PM LV : 155 / -16 / 3 @ 11:59:00 AM 153 / -16 / 3 @ 11:59:00 AM Valves Phase:DefaultPhase AV : 0.0 @ 12:56:39 PM AV Mean Gradient: 0.0 @ 12:56:39 PM Procedural Details Procedure Consent Obtained. Current Diagnosis : Chest Pain. Pre-Procedure Time Out. Identified patient by full name and date of as verbalized by the patient/guarantor. Does the consent match the physician's order: Yes. Accurate & Complete Informed Consent: Yes. Inpatient/Outpatient History & Physical on Chart: Yes. If H&P is completed, is and addenduem needed: No; If yes, is the addendum complete: N/A. Visualize and Verify Site with Patient/Guarantor: N/A. Relevant Radiology Images available: Yes. Pre-op teaching completed and patient verbalized understanding. The risks, benefits, and alternatives of sedation and/or procedure were discussed by physician. The patient agrees to continue. Procedure started. [facility] Clinical Fraility Score: 3: Managing Well. Cartridge Maker Indications: Worsening Angina. Chest Pain Symptom Assessment: Typical Angina Symptoms. Correct patient, site and procedure confirmed by cath team. Current diagnosis: Chest Pain. PERRLA. Strong, equal hand quality improvement specialist bilaterally. Lungs clear x 5 lobes. IV Site on Arrival: 20 gauge in the right anticubital. IV Fluids: 0.9% NaCl at KVO. 0 mL infused prior to cath lab radiological technologist. Pre Procedural Pulses: bilateral dorsalis pedis was 2+. Pre Procedural Pulses: bilateral posterior tibial was 1+. Pre Procedural Pulses: bilateral radial was 1+. Oxygen started at 2liters/min via nasal canula. right groin was prepped with chloroprep then draped in the usual sterile fashion. right radial was prepped with chloroprep then draped in the usual sterile fashion. Baseline sample Acquired. HR: 73 BPM. Physician arrived. Physician scrubbed in. Immediate Pre-Procedure Time Out. Correct Patient: Yes; Correct Procedure: Yes; Correct Site: Yes; Correct Patient Position: Yes; Correct Supplies: Yes; Dried Flammable Prep: Yes; Blood Products Available: N/A;. Lidocaine 1% infiltrated to the right groin. Arterial access obtained with micropuncture set. A 5 andorran JL4 catheter in over wire. Multiple views taken of left coronary artery. Catheter removed over the standard wire. A 5 andorran JR4 catheter in over wire. Multiple views taken of right coronary artery. SVG to RCA occluded. SVG to OM occluded. CEDILLO to LAD visualized. Catheter removed over the standard wire. A 5 andorran MPA1 catheter in over wire. Catheter removed over the standard wire. 6 andorran XB 3 guide catheter was inserted over the wire. AP Pads placed on the patient. Runthrough guidewire was advanced through the guide catheter to lesion in the mid Circ. Inflation number : 1 A AB TREK 2.50X12 RX BALLOON was prepped and advanced across the Mid CX , then inflated to 14 TORSTEN for 0:15 seconds. Balloon out. Inflation Number : 2 A MICHAEL Pineda SAMEERA 3.0X12 MARLO -Lot Number# _[id number] EXP: 05/28/2027 was prepped and advanced across the Mid CX. The stent was deployed at 12 TORSTEN for 0:15 seconds. Stent balloon out over wire. Inflation number : 3 A MDT NC EUPHORA RX 3.17G51VS BALLOON was prepped and advanced across the Mid CX , then inflated to 12 TORSTEN for 0:17 seconds. Inflation number: 4 The MDT NC EUPHORA RX 3.80M50AB BALLOON was reinflated across the Mid CX, to 14 TORSTEN for 0:19 seconds. Balloon out. Results checked. Wire out. Guide catheter out. 6 andorran JR 4 guide catheter was inserted over the wire. ACT drawn. Results out of range high seconds. Therapeutic limits - pre-heparin administration 90-150 seconds and monitoring heparin during a vascular procedure >250 seconds. EDP Sample taken: LV 153/-17,3; HR: 83 BPM; SpO2: 98%. Pullback taken: LV 155/-17,3; AO 155/68(106); Mean: 0mmHg, Peak to Peak: 0mmHg, SEP: 17sec/min; HR: 83 BPM; SpO2: 98%. Runthrough guidewire was advanced through the guide catheter to lesion in the distal RCA. Inflation number : 1 A AB MINI TREK 2.00X20 RX BALLOON was prepped and advanced across the Dist RCA , then inflated to 14 TORSTEN for 0:32 seconds. Inflation number: 2 The AB MINI TREK 2.00X20 RX BALLOON was reinflated across the Dist RCA, to 14 TORSTEN for 0:12 seconds. Inflation number: 1 The AB MINI TREK 2.00X20 RX BALLOON was reinflated across the Mid RCA, to 14 TORSTEN for 0:15 seconds. Inflation number: 1 The AB MINI TREK 2.00X20 RX BALLOON was reinflated across the Prox RCA, to 14 TORSTEN for 0:12 seconds. Balloon out. ACT drawn. Results 354 seconds. Therapeutic limits - pre-heparin administration 90-150 seconds and monitoring heparin during a vascular procedure >250 seconds. Inflation number : 2 A Shockwave 3.0x12 was prepped and advanced across the Prox RCA , then inflated to 4 TORSTEN for 0:22 seconds. Inflation number: 3 The Shockwave 3.0x12 was reinflated across the Prox RCA, to 4 TORSTEN for 0:20 seconds. Balloon out OTW. Guideliner inserted OTW. Inflation number: 4 The Shockwave 3.0x12 was reinflated across the Prox RCA, to 4 TORSTEN for 0:19 seconds. Inflation number: 2 The Shockwave 3.0x12 was reinflated across the Mid RCA, to 4 TORSTEN for 0:16 seconds. Inflation number: 3 The Shockwave 3.0x12 was reinflated across the Mid RCA, to 4 TORSTEN for 0:20 seconds. Inflation number: 4 The Shockwave 3.0x12 was reinflated across the Mid RCA, to 4 TORSTEN for 0:19 seconds. Inflation number: 5 The Shockwave 3.0x12 was reinflated across the Mid RCA, to 4 TORSTEN for 0:21 seconds. Inflation number: 6 The Shockwave 3.0x12 was reinflated across the Mid RCA, to 4 TORSTEN for 0:14 seconds. Balloon out. Inflation number : 7 A AB TREK 2.50X15 RX BALLOON was prepped and advanced across the Mid RCA , then inflated to 14 TORSTEN for 0:25 seconds. Inflation number: 8 The AB TREK 2.50X15 RX BALLOON was reinflated across the Mid RCA, to 14 TORSTEN for 0:13 seconds. Inflation number: 3 The AB TREK 2.50X15 RX BALLOON was reinflated across the Dist RCA, to 14 TORSTEN for 0:16 seconds. Balloon out. Results checked. 2.5x15mm Pollok Stent inserted to lesion in the prox RCA. Intact stent out OTW. Inflation number : 5 A SHOCKWAVE 2.5X12MM was prepped and advanced across the Prox RCA , then inflated to 6 TORSTEN for 0:29 seconds. Inflation number: 9 The SHOCKWAVE 2.5X12MM was reinflated across the Mid RCA, to 6 TORSTEN for 0:19 seconds. Inflation number: 10 The SHOCKWAVE 2.5X12MM was reinflated across the Mid RCA, to 6 TORSTEN for 0:18 seconds. Inflation number: 12 The SHOCKWAVE 2.5X12MM was reinflated across the Mid RCA, to 6 TORSTEN for 0:26 seconds. Inflation number: 13 The SHOCKWAVE 2.5X12MM was reinflated across the Mid RCA, to 6 TORSTEN for 0:26 seconds. Inflation number: 14 The SHOCKWAVE 2.5X12MM was reinflated across the Mid RCA, to 6 TORSTEN for 0:10 seconds. Inflation number: 15 The SHOCKWAVE 2.5X12MM was reinflated across the Mid RCA, to 6 TORSTEN for 0:18 seconds. Inflation number: 16 The SHOCKWAVE 2.5X12MM was reinflated across the Mid RCA, to 6 TORSTEN for 0:18 seconds. Inflation number: 17 The SHOCKWAVE 2.5X12MM was reinflated across the Mid RCA, to 6 TORSTEN for 0:22 seconds. Inflation number: 18 The SHOCKWAVE 2.5X12MM was reinflated across the Mid RCA, to 6 TORSTEN for 0:20 seconds. Inflation number: 19 The SHOCKWAVE 2.5X12MM was reinflated across the Mid RCA, to 16 TORSTEN for 0:19 seconds. Inflation number: 20 The SHOCKWAVE 2.5X12MM was reinflated across the Mid RCA, to 16 TORSTEN for 0:23 seconds. Balloon out. Mat Michael in to scrub in for Dorothy Mireya. Inflation Number : 20 A MDT R SAMEERA 3.0X15 MARLO -Lot Number# _[id number]_ EXP: 05/28/2027 was prepped and advanced across the Mid RCA. The stent was deployed at 12 TORSTEN for 0:19 seconds. Stent balloon out over wire. Inflation Number : 6 A MDT R SAMEERA 3.0X18 MARLO -Lot Number# _[id number]_ EXP: 10/08/2026 was prepped and advanced across the Prox RCA. The stent was deployed at 12 TORSTEN for 0:13 seconds. Stent balloon out over wire. Lidocaine 1% infiltrated to the right groin. Code Blue called. CPR started. Code team arrived. supervisor open hearth stockyard here to record the code. Please see Code sheet. Venous access obtained with a micropuncture set. TPM inserted. Pulse regained. TPM on. Rate: 60 MA:5 Asynchonous. A 20 gauge IV was started in the left hand using aseptic technique. Shock delivered at 120J. Wire and Guideliner removed. Shock delivered at 150J. Shock delivered at 200J. Shock delivered at 200J. Guide catheter out. 6 andorran AL 0.75 guide catheter was inserted over the wire. Fluids running wide open. Family updated. Runthrough guidewire was advanced through the guide catheter to lesion in the mid RCA. Inflation number : 4 A AB TREK 2.50X15 RX BALLOON was prepped and advanced across the Dist RCA , then inflated to 12 TORSTEN for 0:07 seconds. Inflation number: 5 The AB TREK 2.50X15 RX BALLOON was reinflated across the Dist RCA, to 12 TORSTEN for 0:04 seconds. Inflation number: 21 The AB TREK 2.50X15 RX BALLOON was reinflated across the Mid RCA, to 12 TORSTEN for 0:04 seconds. Balloon out. Results checked. ACT drawn. Results 264 seconds. Therapeutic limits - pre-heparin administration 90-150 seconds and monitoring heparin during a vascular procedure >250 seconds. Wire out. Guide catheter out. A Right femoral angiogram was performed. A 16Fr davidson catheter was inserted without resistance maintaining sterile technique. Bag to gravity with clear urine returning. A 5 andorran Angled Pig catheter in over wire. Central line inserted by Dr. Nettles. CPR started. Pulse check. CPR resumed. Amiodarone stopped. TPM turned off. Pulse check. Shock delivered at 200J. CPR resumed. Pulse check. CPR resumed. Pulse check. CPR resumed. Pulse check. CPR resumed. Pulse check. CPR resumed. Pulse check. Code called. Time of : 12:48. Vital chart was stopped. TPM removed. Procedure completed. Access Site Site: Right Femoral artery Sheath Size: 6 Fr Hemostasis Success: Unsuccessful Site: Right Femoral vein Sheath Size: 6 Fr Hemostasis Success: Unsuccessful Intra/Post-Procedure Events Cardiac Arrest: Yes Procedure Medications Start: 10:08 AM Stop: 10:08 AM Medication: Versed Amount: 1 mg Route: I.V. Start: 10:08 AM Stop: 10:08 AM Medication: Fentanyl Amount: 50 mcg Route: I.V. Start: 10:11 AM Stop: 10:11 AM Medication: Versed 1 mg and Fentanyl 25 mcg Amount: 1 Route: I.V. Start: 10:15 AM Stop: 10:15 AM Medication: Fentanyl Amount: 25 mcg Route: I.V. Start: 10:21 AM Stop: 10: AM Medication: Hydralazine Amount: 10 mg Route: I.V. Start: 10: AM Stop: 10: AM Medication: Versed 1 mg and Fentanyl 25 mcg Amount: 1 Route: I.V. Start: 10:37 AM Stop: 10:37 AM Medication: Plavix Amount: 600 mg Route: P.O. Start: 10:42 AM Stop: 10:42 AM Medication: Heparin Amount: 7000 units Route: I.V. Start: 10:57 AM Stop: 10:57 AM Medication: Fentanyl Amount: 25 mcg Route: I.V. Start: 10:59 AM Stop: 10:59 AM Medication: Fentanyl Amount: 25 mcg Route: I.V. Start: 11:01 AM Stop: 11:01 AM Medication: Versed 1 mg and Fentanyl 25 mcg Amount: 1 Route: I.V. Start: 11:12 AM Stop: 11:12 AM Medication: Fentanyl Amount: 25 mcg Route: I.V. Start: 11:25 AM Stop: : AM Medication: Zofran (ondansetron) Amount: 4 mg Route: I.V. Start: 11:34 AM Stop: :34 AM Medication: Versed Amount: 1 mg Route: I.V. Start: 11:49 AM Stop: :49 AM Medication: Atropine Amount: 1 mg Route: I.V. Start: 11:50 AM Stop: 11:50 AM Medication: Epinephrine Amount: 1 mg Route: I.V. Start: 12:04 PM Stop: 12:04 PM Medication: Dopamine 400mg/250 mL Amount: 10 mcg/kg/min Route: I.V. drip Start: 11:53 AM Stop: 11:53 AM Medication: Zofran (ondansetron) Amount: 4 mg Route: I.V. Start: 12:03 PM Stop: 12:03 PM Medication: Atropine Amount: 1 mg Route: I.V. Start: 12:17 PM Stop: 12:17 PM Medication: Levophed (norepinephrine) Amount: 8 mcg/min Route: I.V. drip Start: 12:17 PM Stop: 12:17 PM Medication: Amiodarone (Cordarone) Amount: 150 mg Route: I.V. bolus Start: 12:30 PM Stop: 12:30 PM Medication: Heparin Amount: 4000 units Route: I.V. Start: 12:31 PM Stop: 12:31 PM Medication: Epinephrine Amount: 1 mg Route: I.V. Start: 12:43 PM Stop: 12:43 PM Medication: Epinephrine Amount: 1 mg Route: I.V. Start: 12:47 PM Stop: 12:47 PM Medication: Epinephrine Amount: 1 mg Route: I.V. I, the attending physician, have reviewed and verified all procedure medications. Yes, all medications given per verbal order History/Risk Factors Hypertension: Yes Dyslipidemia: Yes Peripheral Arterial Disease (PAD): No Myocardial Infarction (CT): No Obesity: No Renal Disease: No Tobacco Use: Never Prior Interventions PCI: Yes CABG: Yes Valve Surgery: No Report Signatures Finalized by Heidi Tee MD on 01/18/2025 09:51 PM
--- NOTE | 2024-12-31 10:04 | W.PM.OPSFHP ---
Same Day Surgery H&P Indication for Procedure/HPI DATE OF PROCEDURE: December 31, 2024 CHIEF COMPLAINT/INDICATIONFOR SURGICAL PROCEDURE: Abnormal stress test Chest pressure Angina PREOP DIAGNOSIS: Abnormal stress test PLANNED PROCEDURE: Operation Date: 12/31/24 08:30 Proposed Procedures p Cardiac Catheterization - [facility] w/wo LV & Coros(Left) - Heidi Tee MD 69-year-old female past medical history significant for coronary artery disease of CABG x 3 in 2015 for angina underwent stress test which turns out to be abnormal in basal to distal anterior and anterolateral wall, it is a reason patient is here for left heart cath. Medications/Allergies* Home Medications ?Medication ?Instructions ?Recorded ?Confirmed ?Type aspirin 325 mg tablet 325 mg PO DAILY 09/06/21 12/31/24 History Held on 07/04/23. Instructions: Resume on 07/06/23. carvedilol 6.25 mg tablet (Coreg) 6.25 mg PO BID 09/06/21 12/31/24 History icosapent ethyl 1 gram capsule 2 g PO BID 09/06/21 12/31/24 History (Vascepa) lisinopril 5 mg tablet 10 mg PO BID 09/06/21 12/31/24 History paroxetine HCl 40 mg tablet (Paxil) 40 mg PO DAILY 09/06/21 12/31/24 History potassium chloride 10 mEq 10 meq PO DAILY 09/06/21 12/31/24 History tablet,extended release (Klor-Con) alendronate 70 mg tablet (Fosamax) 70 mg PO .Q 7 days. 09/28/21 12/31/24 History ergocalciferol (vitamin D2) 1,250 1,250 mcg PO .Q 7 days 09/28/21 12/31/24 History mcg (50,000 unit) capsule Allergies/Adverse Reactions Allergy/AdvReac Type Severity Reaction Status Date / Time erythromycin base Allergy Intermediate ALGY-Hives Verified 11/26/24 14:35 Tetracyclines AdvReac yeast Verified 11/26/24 14:35 Current Medications: Generic Name Dose Route Start Last Admin Trade Name Freq PRN Reason Stop Dose Admin Sodium Chloride 1,000 mls @ 50 mls/hr 12/31/24 07:30 12/31/24 08:44 Sodium Chloride 0.9% IV 10/16/25 03:29 Not Given .Q20H ONE Pertinent History/Comorbid Conditions* Medical History (Updated 12/09/24 @ 13:20 by Jeanna Jimenez) Family history of colon cancer Scoliosis Coronary bypass graft mechanical complication Prophylactic ovary removal Abnormal colonoscopy Normal endoscopy Hypertension Hypertriglyceridemia Osteoporosis CAD S/P percutaneous coronary angioplasty Esophageal stricture Diabetes mellitus with hyperglycemia Mitral valve disorder Fatty liver Vitamin D deficiency Surgical History (Updated 07/05/23 @ 00:01 by STEPHANIE Todd) History of esophagogastroduodenoscopy (EGD) [facility] in [place] History of appendectomy Previous section History of colonoscopy with polypectomy Hx of hysterectomy Family History (Updated 09/28/21 @ 13:48 by Genevieve Whitley LPN) Heart attack Mother Cancer Father Mother Glaucoma Father Hypertension Mother Social History Smoking and tobacco/nicotine status: never used tobacco/nicotine Second hand smoke exposure: No Alcohol intake: never Substance/Drug Use: never Adopted: No Caregiver/support person: No Lives independently: Yes Household members: spouse Housing: Manufactured/Mobile home Marital status: Number of children: 4 Highest education level completed: High School Graduate service: No Current occupational status: retired Pertinent Exam Findings alert, oriented x 3, clear to auscultation bilaterally, regular rate & rhythm and operative site marked GENERAL: Patient is alert, awake and oriented x3. HEART: Regular S1 and S2. No murmur, rub or gallop. LUNGS: Clear to auscultate bilaterally. CENTRAL NERVOUS SYSTEM: Grossly nonfocal. EXTREMITIES: Lower extremities with out edema bilaterally. Conscious Sedation Assessment PATIENT ASSESSED PRIOR TO SEDATION, WITH NO CHANGE NOTED: Yes AIRWAY EVAL/ANESTHESIA PLAN: ASA II, Risks, benefits & alternatives of sedation and/or procedure discussed and Patient agrees to continue as planned Recommendations Risks and benefits of procedure reviewed and Patient/family agree to proceed Surgery/Procedure today Other Plans: All risk-benefit and alternative for the procedure has been explained to the patient. Patient has 10 2% risk of stroke major bleed. Patient understand 5% risk of minor bleeding oozing infection hematoma contrast-induced nephropathy, patient fully understood and would like to proceed with it. Patient understand 5% risk of urgent emergent vascular or coronary artery bypass surgery. Coding Level of Care Code Acute Code for Jhonnorma Fwkerry
[2024-12-31 12:29] VITALS: RESP 14
--- NOTE | 2024-12-31 12:57 | P.DES_ITS ---
Discharge Providers DDS Date Summary Completed: 01/18/25 Attending Provider at Discharge: Heidi Tee MD Consults: 69-year-old female past medical history significant for extensive history of coronary artery disease status post coronary artery bypass surgery in 2014 with CEDILLO to LAD, SVG to circumflex and SVG to RCA, diabetes mellitus hypertension hyperlipidemia kyphoscoliosis esophageal stricture for worsening of shortness of breath chest pain underwent stress test which turned out to be abnormal. It is the reason patient underwent left heart cath today. She was noted to have occluded both saphenous venous graft to OM and RCA. Anatomy was LAD was completely occluded 100% known to be, left circumflex has severe 95% mid stenosis, RCA has proximal mid and distal highly calcified significant stenosis. Patient was loaded with 600 mg of Plavix, we proceeded with PCI of mid circumflex it was treated with single drug-eluting stent postdilated with noncompliant balloon. Excellent angiographic result with ROSELINE-3 flow was achieved. RCA was highly calcified vessel that proximal and mid and distal segment. GuideLiner and JR4 guide was used, we were able to cross the lesion and balloon dilated proximal mid and distal segments however we were not able to cross with the stent beyond the mid segment therefore we decided to performed lithotripsy using (IVL) catheter 2.5 and 3.0 millimeter subsequently were used in the proximal and mid segment of the RCA with difficulty to cross the lesions, after the last round of lithotripsy with 3.0 catheter patient became bradycardic with intermittent Mobitz type II to complete heart block, atropine and epinephrine was given, patient was started on dopamine, code was called, cutaneous pacing was started, temporary pacemaker was placed. Patient then had episode of supraventricular tachycardia. In the meantime she was treated with 2 overlapping drug-eluting stents to mid and proximal segment delivered with the help of GuideLiner, patient went back to bradycardia and complete heart block after delivering of the stents., Injection of the contrast noted possible occlusion of the blood vessel with possibility of distal dissection or thrombus, balloon angioplasty was performed which opened up the blood vessels and restore the flow. Patient remains hypotensive, we prepare the groin for Impella since patient was already on dopamine Levophed and vasopressin. While trying to place Impella patient went into PEA arrest. More than 20 minutes of continuous CPR was performed in the third round, despite of that patient unfortunately did not achieve ROSC, at this point after discussion and with consent of CPR team we called off the code. Patient was pronounced at :1247 Primary Care Provider: Matthew Baltazar Reason for Visit Reason for Visit R94.39 Summary Additional Data Advance directives?: No Discharge Plan Discharge Patient Disposition: Home Prescriptions: No Action (DME) Dexcom G6 Tetryl Nitrator Operator Misc See Rx Instructions .Route Qty: 1 0RF Rx Instructions: Check BS 4-6 times a day. (DME) Dexcom G6 Sensor Device See Rx Instructions .Route Qty: 9 3RF Rx Instructions: Change every 10 days. (DME) Dexcom G6 Transmitter Device See Rx Instructions .Route Qty: 3 3RF Rx Instructions: Change every 90 days. aspirin 325 mg tablet 325 mg PO DAILY paroxetine HCl [Paxil] 40 mg tablet 40 mg PO DAILY lisinopril 5 mg tablet 10 mg PO BID carvedilol [Coreg] 6.25 mg tablet 6.25 mg PO BID Rx Instructions: must administer with a meal/food icosapent ethyl [Vascepa] 1 gram capsule 2 g PO BID potassium chloride [Klor-Con 10] 10 mEq tablet extended release 10 meq PO DAILY ergocalciferol (vitamin D2) 1,250 mcg (50,000 unit) capsule 1,250 mcg PO .Q 7 days alendronate [Fosamax] 70 mg tablet 70 mg PO .Q 7 days. pantoprazole [Protonix] 40 mg tablet,delayed release (DR/EC) 40 mg PO BID 42 Days Qty: 84 1RF insulin aspart U-100 [Novolog U-100 Insulin aspart] 100 unit/mL solution 5 unit SUBCUT TID 90 Days Qty: 30 1RF (DME) insulin syringe-needle U-100 [BD Insulin Syringe Ultra-Fine] 0.3 mL 31 gauge x 5/16 syringe See Rx Instructions .Route Qty: 100 3RF Rx Instructions: As directed (DME) pen needle, diabetic 31 gauge x 3/16 needle See Rx Instructions .ROUTE .COMPLEX Qty: 100 4RF Dose Instruction: USE TO INJECT INSULIN 4 TIMES DAILY Rx Instructions: USE TO INJECT INSULIN 4 TIMES DAILY Ozempic 2 mg/dose (8 mg/3 mL) pen injector See Rx Instructions .ROUTE .COMPLEX Qty: 3 3RF Dose Instruction: INJECT 2 MG SUBCUTANEOUSLY EVERY 7 DAYS Rx Instructions: INJECT 2 MG SUBCUTANEOUSLY EVERY 7 DAYS insulin aspart U-100 [Novolog FlexPen U-100 Insulin] 100 unit/mL (3 mL) insulin pen See Rx Instructions .ROUTE .COMPLEX Qty: 45 0RF Dose Instruction: INJECT 20 UNITS SUBCUTANEOUSLY THREE TIMES DAILY Rx Instructions: INJECT 6-10 UNITS SUBCUTANEOUSLY THREE TIMES DAILY insulin glargine [Lantus Solostar U-100 Insulin] 100 unit/mL (3 mL) insulin pen See Rx Instructions .ROUTE .COMPLEX Qty: 45 1RF Dose Instruction: INJECT 40 UNITS SUBCUTANEOUSLY DAILY Rx Instructions: INJECT 35 UNITS SUBCUTANEOUSLY DAILY Print Language: Salvadorean Discharge Date/Time: 12/31/24 06:31 DS Attestations Time Spent in /Discharge Care*: critical care time Quality - AMI: AMI present?: Yes Quality - Stroke: CVA present?: No Quality - VTE: VTE present?: No Coding Level of Care Code Acute Code for Taya Hoover
--- NOTE | 2024-12-31 13:18 | PC.NURSE ---
MTS on contact on patient expiration. Reference number is [id number]. [facility] Patient has been placed on a hold for MTS at this time.
--- NOTE | 2024-12-31 13:29 | PM.CCN ---
Critical Care Event Note The high probability of a clinically significant, sudden or life threatening deterioration of the patient's [cardiovascular respiratory] system(s) required my full and direct attention, intervention and personal management. The critical care time is as shown. This time is in addition to time spent performing any reported procedures but includes the following: [x] Data and vital sign review and interpretation [x] Patient assessment, examination and intervention [x] Documentation [x] Medication orders and management CODE JENNIFER was called in the Instructional Media Services Technician as part of the code response I responded to the Instructional Media Services Technician. Patient was an outpatient heart catheterization did not have an attending inpatient. Dr. Hollis continue to work on the patient and to try to open coronary arteries. See his notes. Additionally he was placing temporary pacemaker while he continued to focus on this I managed the code. On initial arrival CPR was in progress patient was given epi. V-fib was noted on several occasions during the course of the code which were shocked each time. We continue to follow ACLS protocols including giving epinephrine. We did briefly achieve ROSC send patient went back into cardiac arrest. She was given calcium gluconate sodium bicarb as well as continued doses of epinephrine. Vasopressin and dopamine were started. The dopamine began in response to a period time where she was having significant bradycardia. For the recurrent ventricular tachycardia's patient was given amiodarone bolus and then started on a drip. See the code note for timing and sequence of medications given. Ultimately after extensive resuscitative efforts Dr. Tee and I mutually agreed to cease efforts as patient was not responding. He felt that there was no intervention he could provide that would improve her outcome. Time of :1247 Critical Care Time Code activated: Yes Critical Care Time (min): 60 Procedures Intubation Sedative: etomidate Mg given: 20 Paralytic: vecuronium Mg given: 10 Laryngoscope: fiber optic video scope ET tube size: 8 ET tube uncuffed: No Tube secured depth (cm): 23 Tube secured location: teeth Tube placement confirmation: visualized tube passing through cords, equal breath sounds bilaterally, no breath sounds over epigastrium, confirmation by capnometry and color change noted Patient tolerated procedure: well Intubation complications: none Coding Level of Care Code Critical Care Other Coding Information Procedural care (documented in this note) and Prolonged care (total time indicated above or notated here)
--- NOTE | 2025-01-01 09:40 | PC.NURSE ---
Called the pts Les and her son Yvon answered the phone. He was informed that his moms eye glasses were left here, Yvon stated that he would come and pick them up. He was unsure of what day he would be here.
== END 2024-12-31 06:31 | disposition home or self-care (01) ==
PROVIDERS: PCP Family Medicine; Visit Provider Internal Medicine Cardiovascular Disease
DX: I97.710 Intraoperative cardiac arrest during cardiac surgery (principal); I25.118 Atherosclerotic heart disease of native coronary artery with other forms of angina pectoris; Z95.1 Presence of aortocoronary bypass graft; I10 Essential (primary) hypertension; E78.5 Hyperlipidemia, unspecified; Z79.82 Long term (current) use of aspirin; E11.9 Type 2 diabetes mellitus without complications; I05.9 Rheumatic mitral valve disease, unspecified; K22.2 Esophageal obstruction; K21.9 Gastro-esophageal reflux disease without esophagitis; Z79.4 Long term (current) use of insulin
CPT/HCPCS: 33210; 36415; 51702; 80048; 85025; 85347; 92972; 93459; 94002; 94799; 96365; 96374; 96375; 99152; 99153; C1725; C1769; C1874; C1887; C1894; C9600; J0283; J0360; J0461; J1644; J2250; J2405; J3010; J7030; J9999; Q0163; Q9967